=== PATIENT | male | born 1975 | race Caucasian/White ===

== ENCOUNTER 2018-08-27 10:35 | Emergency (ER) | payer OTHER, MEDICARE ==
[2018-08-27 10:48] VITALS: BP 123/73
[2018-08-27] MEDS ORDERED: METHYLPREDNISOLONE INJ 125 MG/2 ML SDV IM ONE (11:03)
[2018-08-27] MEDS ORDERED: KETOROLAC TROMETHAMINE 60 MG/2 ML SDV IM ONE (11:03)
--- NOTE | 2018-08-27 11:08 | ER Document Report ---
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 Patient states that when he has flareups such as this, he usually calls his primary care doctor who ordered him a steroid tapering pack along with giving him a steroid shot which works really well for him. He has been using [id number] meds for his symptoms otherwise. Patient states that he is in pain most days, but has had a recent flareup which is not uncommon for him. He denies any new injury. He denies any drug allergies or IV drug use. He is eating and drinking without any difficulties. He is urinating normally and having normal bowel movements. Denies any headache, fever, changes in vision/speech/mentation/hearing, URI, sore throat, chest pain, palpitations, syncope, cough, shortness of breath, wheeze, dyspnea, abdominal pain, nausea/ vomiting/diarrhea, urinary retention, dysuria, hematuria, loss of control of bowel or bladder, numbness/tingling, saddle anesthesia, muscle paralysis/ weakness, or rash. - ROS Systems Reviewed and Negative: Yes All other systems reviewed and negative Past Medical History - Social History Smoking Status: Current Every Day Smoker Family History: Reviewed & Not Pertinent Vertical Provider Document - CONSTITUTIONAL Agree With Documented VS: Yes Notes: PHYSICAL EXAMINATION: GENERAL: Well-appearing, well-nourished and in no acute distress. HEAD: Atraumatic, normocephalic. Non-tender. EYES: Pupils equal round and reactive to light, extraocular movements intact, sclera anicteric, conjunctiva are normal. ENT: Nares patent and without discharge. oropharynx clear without exudates. No tonsilar hypertrophy or erythema. Moist mucous membranes. NECK: Normal range of motion, supple without lymphadenopathy. No rigidity. No midline tenderness. Spurling negative. + mild tenderness to the c-paraspinal mm. LUNGS: Breath sounds clear to auscultation bilaterally and equal. No wheezes rales or rhonchi. HEART: Regular rate and rhythm without murmurs, rubs, gallops. Musculoskeletal: LE's b/l: FROM to passive/active. Strength 5+/5. No deficits noted. No bony tenderness of extremities. Back: FROM to passive/active. Strength 5+/5. No vertebral point tenderness, stepoffs, or deformities. No other bony tenderness, erythema, swelling, or ecchymosis. SLR negative b/l. no SI jt tenderness. No foot drop Extremities: No cyanosis, clubbing, or edema b/l. Peripheral pulses 2+. Capillary refill less than 2 seconds. NEUROLOGICAL: Normal speech, ataxic gait. Normal sensory, motor exams. Reflexes 2+ b/l. PSYCH: Normal mood, normal affect. SKIN: Warm, Dry, normal turgor, no rashes or lesions noted. Course - Re-evaluation Re-evalutation: 08/27/18 11:06 Patient is an afebrile, well-hydrated, 25-year-old male who presents to the ED with acute on chronic neck pain. Vitals are acceptable. PE is otherwise unremarkable for any focal neurological deficits. Patient was given Toradol and Solu-Medrol. He has no significant tachycardia, tachypnea, or hypoxia. He is nontoxic-appearing and is tolerating p.o. without difficulties. There are no signs of infection. No other red flag symptoms noted. No other labs or imaging warranted at this time based on H&P. Low suspicion for any meningitis, fracture, expanding/ruptured AAA, cauda equina syndrome, epidural mass lesion/ abscess, herniated disc causing severe spinal stenosis, or other systemic infection at this time. Patient is aware that his condition can change from initial presentation and that he needs monitor symptoms closely for any acute changes. I will send him home with a prescription for a steroid taper. Conservative measures otherwise for symptoms. Recheck with your PCM in 3-5 days. Consider consult with orthopedic/physical therapy. Return to the ED with any worsening/concerning symptoms otherwise as reviewed discharge. Patient is in agreement. - Vital Signs Vital signs: Temp Pulse Resp BP Pulse Ox 98.5 F 77 16 123/73 96 08/27/18 10:46 08/27/18 10:46 08/27/18 10:46 08/27/18 10:46 08/27/18 10:46 Discharge - Discharge Clinical Impression: Chronic neck pain Condition: Stable Disposition: HOME, SELF-CARE Additional Instructions: Rest, Ice Tylenol/ibuprofen as needed Light stretches daily Strength exercises as able Moist heat and massage may help F/u with your PCP in 3-5 days for a recheck Consider consult(s) with Orthopedics/physical therapy for ongoing/worsening symptoms Return to the ED with any worsening symptoms and/or development of fever, headache, chest pain, palpitations, syncope, shortness of breath, trouble breathing, abdominal pain, n/v/d, blood in stool/urine, loss of control of bowel /bladder, urinary retention, muscle weakness/paralysis, saddle anesthesia, numbness/tingling, or other worsening symptoms that are concerning to you. Prescriptions: Prednisone 20 mg PO ASDIR #18 tablet Forms: Smoking Cessation Education Referrals: [facility] [Provider Group] - Follow up as needed
== END 2018-08-27 11:35 | disposition home or self-care (01) ==
LOC: ER 10:35
DX: G89.29 Other chronic pain (principal); M54.2 Cervicalgia; F17.200 Nicotine dependence, unspecified, uncomplicated
CPT/HCPCS: 99283; 96372; J1885; J2930

== ENCOUNTER 2018-09-27 16:10 | Emergency (ER) | payer OTHER, MEDICARE ==
[2018-09-27] MEDS ORDERED: PREDNISONE 20 MG TABLET PO ONE (18:59)
[2018-09-27] MEDS ORDERED: HYDROMORPHONE HCL INJ/PF 2 MG/ML AMPULE IM ONE (18:59)
[2018-09-27] MEDS ORDERED: METOCLOPRAMIDE HCL 10 MG TABLET PO ONE (19:01)
[2018-09-27] MEDS ORDERED: DIAZEPAM 5 MG TABLET PO ONE (19:01)
[2018-09-27] MEDS ORDERED: DIPHENHYDRAMINE HCL 25 MG CAPSULE PO ONE (19:02)
--- NOTE | 2018-09-27 19:09 | ER Document Report ---
ED General - General Chief Complaint: Neck Problem Stated Complaint: NECK/ARM PAIN Time Seen by Provider: 09/27/18 18:18 Mode of Arrival: Ambulatory Information source: Patient Notes: Patient is a 43-year-old male with a history of chronic pain, traumatic brain injury status post multiple surgeries for injuries related to combat who presents to the ED complaining of ongoing neck pain and not being able to see his provider until October. 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 Patient states that when he has flareups such as this, he usually calls his primary care doctor who ordered him a steroid tapering pack along with giving him a steroid shot which works really well for him. He has been using [id number] meds for his symptoms otherwise. Patient states that he is in pain most days, but has had a recent flareup which is not uncommon for him. He denies any new injury. He denies any drug allergies or IV drug use. He is eating and drinking without any difficulties. He is urinating normally and having normal bowel movements. Denies any , fever, changes in vision/speech/mentation/hearing, URI, sore throat , chest pain, palpitations, syncope, cough, shortness of breath, wheeze, dyspnea , abdominal pain, nausea/vomiting/diarrhea, urinary retention, dysuria, hematuria, loss of control of bowel or bladder, numbness/tingling, saddle anesthesia, muscle paralysis/weakness, or rash. Patient's neck pain is located in the paraspinal musculature of the cervical spine on the right extending from his occiput to his right shoulder. Patient continuously states that "I am going to lose it, I am at the point of losing it". He is not currently under orthopedic or pain management care. He states that he gets his care from the [place] and has not been able to be seen recently. TRAVEL OUTSIDE OF THE [place] IN LAST 30 DAYS: No - HPI Onset: Other Onset/Duration: Persistent Quality of pain: Throbbing Severity: Moderate Pain Level: 3 Associated symptoms: Body/muscle aches, Headache, Vomiting. denies: Chest pain , Fever, Nausea Exacerbated by: Movement, Walking, Coughing Relieved by: Denies Similar symptoms previously: Yes Recently seen / treated by doctor: Yes - Related Data Allergies/Adverse Reactions: morphine Allergy (Verified 09/27/18 16:15) Past Medical History - General Information source: Patient, [facility] Records - Social History Smoking Status: Current Every Day Smoker Cigarette use (# per day): Yes - 15 Chew tobacco use (# tins/day): No Smoking Education Provided: Yes - Smoking cessation counseling was provided for 4 minutes at the bedside Frequency of alcohol use: None Drug Abuse: None Lives with: Family Family History: Reviewed & Not Pertinent Patient has suicidal ideation: No Patient has homicidal ideation: No Neurological Medical History: Reports: Other - Traumatic brain injury Renal/ Medical History: Denies: Hx Peritoneal Dialysis Musculoskeletal Medical History: Reports Hx Musculoskeletal Deformity, Reports Hx Musculoskeletal Trauma Psychiatric Medical History: Reports: Other - Traumatic brain injury Past Surgical History: Reports: Hx Orthopedic Surgery - neck, hip, shoulder Review of Systems - Review of Systems Notes: REVIEW OF SYSTEMS: CONSTITUTIONAL : Denies fever, chills, or sweats. Denies recent illness. Denies weight loss, recent hospitalizations. EENT: Denies visual changes, eye pain. Denies sore throat, oral lesions, difficulty swallowing. CARDIOVASCULAR: Denies chest pain. Denies palpitations. Denies lower extremity edema. RESPIRATORY: Denies cough. Denies shortness of breath, wheezing. GASTROINTESTINAL: Denies abdominal pain or distention. Denies nausea, vomiting , or diarrhea. Denies blood in vomitus, stools, or per rectum. Denies black, tarry stools. Denies constipation. GENITOURINARY: Denies difficulty urinating, painful urination, frequency, blood in urine, testicular pain or penile discharge. MUSCULOSKELETAL: Denies back pain or stiffness. Denies joint pain or swelling. SKIN: Denies rash, lesions or sores. HEMATOLOGIC : Denies easy bruising or bleeding. LYMPHATIC: Denies swollen glands. NEUROLOGICAL: Denies confusion or altered mental status. Denies loss of consciousness. Denies dizziness or lightheadedness. Denies headache. Denies paralysis. Denies problems difficulty with ambulation, slurred speech. Denies sensory loss, numbness, or tingling. Denies seizures. PSYCHIATRIC: Denies anxiety or stress. Denies depression, suicidal ideation, or Physical Exam - Vital signs Vitals: Temp Pulse Resp BP Pulse Ox 98.2 F 60 18 150/82 H 98 09/27/18 16:29 09/27/18 16:29 09/27/18 16:29 09/27/18 16:29 09/27/18 16:29 Interpretation: Hypertensive - Notes Notes: PHYSICAL EXAMINATION: GENERAL: Well-appearing, well-nourished and in no acute distress. HEAD: Atraumatic, normocephalic. EYES: Pupils equal round and reactive to light, extraocular movements intact, sclera anicteric, conjunctiva are normal. ENT: Nares patent, oropharynx clear without exudates. Moist mucous membranes. NECK: Normal range of motion, supple without lymphadenopathy LUNGS: Breath sounds clear to auscultation bilaterally and equal. No wheezes rales or rhonchi. HEART: Regular rate and rhythm without murmurs ABDOMEN: Soft, nontender, nondistended abdomen. No guarding, no rebound. No masses appreciated. Musculoskeletal: Normal range of motion, no pitting or edema. No cyanosis. No midline tenderness of the cervical, thoracic, lumbar spine. Patient has full range of motion of the right shoulder. He does have some pain along the right trapezius. 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 No neurologic deficits. Left bicep with atrophy when compared to right bicep but still with normal muscle tone. NEUROLOGICAL: Mental status; alert and oriented x3. Cranial nerves II through XII intact. Sensation intact to sharp/dull differentiation in all extremities. Motor; normal tone. No abnormal movements appreciated. No pronator drift. Strength tested and 5/5 in bilateral wrist flexion/extension, elbow flexion/ extension, shoulder abduction, straight leg raise, knee flexion/extension, ankle dorsiflexion/plantar flexion. Patient ambulates with a steady gait. Coordination; no ataxia. Finger to nose and heel to kang testing intact bilaterally. Reflexes; brachial radialis, biceps, and patellar reflexes within normal limits and symmetric bilaterally. Babinski with downgoing toes bilaterally. PSYCH: Agitated SKIN: Warm, Dry, normal turgor, no rashes or lesions noted. Course - Re-evaluation Re-evalutation: 09/27/18 21:53 Cervical Spine MRI 09/27/18 19:09 IMPRESSION: Spinal fusion at C5-C6 Disc osteophyte at C3-C4 resulting in moderate to severe narrowing of the central canal and severe bilateral neural foraminal stenosis Small left lateral disc osteophyte complex at C2-3 with left neural foraminal narrowing Disc bulging at C4-5 with moderate narrowing of the central canal and moderate neural foraminal stenosis. 09/27/18 21:54 Patient is a 43-year-old male with a history of chronic pain, traumatic brain injury status post multiple surgeries for injuries related to combat who presents to the ED complaining of ongoing neck pain and not being able to see his provider until October. 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 Patient states that when he has flareups such as this, he usually calls his primary care doctor who ordered him a steroid tapering pack along with giving him a steroid shot which works really well for him. Vital signs reviewed. Patient is mildly hypertensive. He has no focal neurologic deficits. Patient did receive, Dilaudid, Valium, Reglan, Benadryl. MRI obtained and reviewed with the patient. Patient was provided a copy of his MRI to bring to his spinal surgeon. No emergent findings. 09/27/18 21:54 09/27/18 22:09 Patient reevaluated. He is sitting up, eating, smiling. He states "I am so thankful for this". Patient provided a copy of his MRI. He is requesting a prednisone burst which I will provide for him. Patient was evaluated and treated as appropriate for the patient's presenting symptoms and complaint, with consideration of any critical or life threatening conditions that may be associated with their obtained history and exam as noted above. All results were discussed with patient and provided a copy of his MRI report. Patient provided the opportunity to ask questions, and express concerns. Patient was educated on treatments based on their presumed diagnosis as noted above. At this time we will discharge the patient with return precautions and follow-up recommendations. Verbal discharge instructions given a the bedside. Medication warnings reviewed. Patient is in agreement with this plan and has verbalized understanding of return precautions. After careful consideration I feel that that patient can be safely discharged from the emergency department, they were advised to followup with a primary care physician in 2-3 days. Dictation on this chart was performed using voice recognition software and may result in unintended grammatical, spelling, syntax or errors. 09/28/18 02:40 09/28/18 02:40 - Vital Signs Vital signs: Temp Pulse Resp BP Pulse Ox 98.2 F 63 20 132/83 H 99 09/27/18 16:29 09/27/18 22:18 09/27/18 22:18 09/27/18 22:43 09/27/18 22:18 - Diagnostic Test Radiology reviewed: Image reviewed, Reports reviewed Discharge - Discharge Clinical Impression: Acute on chronic neck pain, Elevated blood pressure reading, Bulging of cervical intervertebral disc Condition: Good Disposition: HOME, SELF-CARE Instructions: Herniated Disc ([facility]), Neck Injury (Cervical Strain) ([facility]) Prescriptions: Prednisone [Deltasone 20 mg Tablet] 3 tab PO DAILY 5 Days #15 tablet Forms: Elevated Blood Pressure Referrals: DEX NATARAJAN DO [Primary Care Provider] - Follow up as needed
--- NOTE | 2018-09-27 21:43 | RADIOLOGY REPORT (SQ) ---
EXAM DESCRIPTION: MR CERVICAL SPINE WITHOUT IV CONTRAST COMPLETED DATE/TME: 09/27/2018 19:09 CLINICAL HISTORY: 43 years Male neck pain COMPARISON: None. TECHNIQUE: Multiplanar and multisequence imaging obtained through the cervical spine without IV contrast. FINDINGS: Straightening of the normal cervical lordosis. Anterior plate and screw fixation with spinal fusion at C5-C6. No evidence of abnormal signal in the cervical cord or the craniocervical junction. C2-3: There is a tiny disc osteophyte on the left resulting in some narrowing of the left aspect of the canal and narrowing of the left neural foramen. C4-5: There is moderate generalized bulging of the disc and posterior osteophytosis which results in moderate to severe narrowing of the central canal and severe bilateral neural foraminal stenosis worse on the left. C4-5: Generalized bulging of the disc with moderate narrowing of the central canal and neural foramina. C5-6: Motion artifact limits evaluation of this region on the axial sequence. There does not appear to be central canal or neural foraminal stenosis. C6-7: There is generalized disc bulging with mild narrowing of the central canal and findings suggesting severe bilateral neural foraminal narrowing. No evidence of abnormal marrow signal to suggest geographic marrow lesion. IMPRESSION: Spinal fusion at C5-C6 Disc osteophyte at C3-C4 resulting in moderate to severe narrowing of the central canal and severe bilateral neural foraminal stenosis Small left lateral disc osteophyte complex at C2-3 with left neural foraminal narrowing Disc bulging at C4-5 with moderate narrowing of the central canal and moderate neural foraminal stenosis.
[2018-09-27] MEDS ORDERED: FENTANYL CITRATE INJ/PF 100 MCG/2 ML AMPUL IV ONE (21:50)
[2018-09-27 22:44] VITALS: BP 132/83
== END 2018-09-27 22:46 | disposition home or self-care (01) ==
LOC: ER 16:10
DX: G89.29 Other chronic pain (principal); M54.2 Cervicalgia; M79.10 Myalgia, unspecified site; R51 Headache; F17.210 Nicotine dependence, cigarettes, uncomplicated; Z87.820 Personal history of traumatic brain injury; Z88.6 Allergy status to analgesic agent
CPT/HCPCS: 99284; 96372; 72141; J3010; J1170; J7512

== ENCOUNTER 2019-01-29 11:52 | Emergency (ER) | payer OTHER, MEDICARE ==
--- NOTE | 2019-01-29 12:30 | ER Document Report ---
ED Medical Screen (RME) - General Chief Complaint: Post Surgical Pain Stated Complaint: POST OP COMPLICATIONS Time Seen by Provider: 01/29/19 12:21 Primary Care Provider: DEX NATARAJAN DO [Primary Care Provider] - Follow up as needed Notes: RAPID MEDICAL EVALUATION DISCLOSURE I have seen this patient as part of a Rapid Medical Evaluation and, if applicable, placed any initially appropriate orders. The patient will be seen and fully evaluated, including a full history and physical exam, by a provider (in Main ED or Fast Track) when a room becomes available. 43-year-old male status post recent cervical spine surgery (he does not know the name of the surgery) at the [facility] January 21, 2019 here with complaints of some right anterior neck swelling and pain that started this morning. He also had associated night sweats. He has not had any drainage. He became concerned because his postsurgical instructions stated that he should go to the emergency department if he had any swelling after the surgery. He denies any other symptoms. EXAM There is some mild soft tissue fullness just to the right of midline Dressings clean dry and intact TRAVEL OUTSIDE OF THE [place] IN LAST 30 DAYS: No - Related Data Allergies/Adverse Reactions: morphine Allergy (Verified 01/29/19 11:53) Past Medical History Renal/ Medical History: Denies: Hx Peritoneal Dialysis Musculoskeltal Medical History: Reports Hx Musculoskeletal Deformity, Reports Hx Musculoskeletal Trauma Past Surgical History: Reports: Hx Orthopedic Surgery - neck, hip, shoulder Physical Exam - Vital signs Vitals: Temp Pulse Resp BP Pulse Ox 98.3 F 57 L 16 132/74 H 99 01/29/19 11:57 01/29/19 11:57 01/29/19 11:57 01/29/19 11:57 01/29/19 11:57 Course - Vital Signs Vital signs: Temp Pulse Resp BP Pulse Ox 98.3 F 57 L 16 132/74 H 99 01/29/19 11:57 01/29/19 11:57 01/29/19 11:57 01/29/19 11:57 01/29/19 11:57 Doctor's Discharge - Discharge Referrals: DEX NATARAJAN, [Primary Care Provider] - Follow up as needed
[2019-01-29 12:54] LABS: ABSOLUTE EOSINOPHILS # (AUTO) 0.1 10^3/uL (0.0-0.6); ABSOLUTE LYMPHOCYTES (AUTO) 1.5 10^3/uL (0.5-4.7); ABSOLUTE MONOCYTES (AUTO) 0.6 10^3/uL (0.1-1.4); ABSOLUTE NEUT (AUTO) 5.5 10^3/uL (1.7-8.2); BASOPHILS % (AUTO) 0.6 % (0-2); EOSINOPHILS % (AUTO) 1.4 % (0-6); HEMATOCRIT 45.1 % (37.9-51.0); HEMOGLOBIN 15.8 g/dL (13.5-17.0); LYMPHOCYTES % (AUTO) 19.2 % (13-45); MEAN CORPUSCULAR HEMOGLOBIN 34.9 pg (27.0-33.4); MEAN CORPUSCULAR HGB CONC 35.1 g/dL (32.0-36.0); MEAN CORPUSCULAR VOLUME 99 fl (80-97); MONOCYTES % (AUTO) 7.7 % (3-13); PLATELET COUNT 256 10^3/uL (150-450); RED BLOOD COUNT 4.54 10^6/uL (4.35-5.55); RED CELL DISTRIBUTION WIDTH 12.9 % (11.5-14.0); SEGMENTED NEUTROPHILS % (AUTO) 71.1 % (42-78); TOTAL CELLS COUNTED % (AUTO) 100 %; WHITE BLOOD COUNT 7.7 10^3/uL (4.0-10.5)
[2019-01-29 13:07] LABS: ALANINE AMINOTRANSFERASE 27 U/L (21-72); ALBUMIN 4.6 g/dL (3.5-5.0); ALKALINE PHOSPHATASE 91 U/L (38-126); ANION GAP 9 (5-19); ASPARTATE AMINO TRANSFERASE 27 U/L (17-59); BILIRUBIN,DIRECT 0.2 mg/dL (0.0-0.4); BILIRUBIN,TOTAL 0.4 mg/dL (0.2-1.3); BLOOD UREA NITROGEN 12 mg/dL (7-20); CALCIUM 9.8 mg/dL (8.4-10.2); CARBON DIOXIDE 30 mmol/L (22-30); CHLORIDE 100 mmol/L (98-107); GLUCOSE 91 mg/dL (75-110); SODIUM 139.1 mmol/L (137-145)
--- NOTE | 2019-01-29 13:36 | ER Document Report ---
ED General - General Chief Complaint: Post Surgical Pain Stated Complaint: POST OP COMPLICATIONS Time Seen by Provider: 01/29/19 12:21 Primary Care Provider: DEX NATARAJAN DO [NO LOCAL MD] - Follow up as needed Information source: Patient Notes: 43-year-old male who presents today stating he feels a little bit of fullness to the right anterior neck. Patient had a fusion of C3 through C6 and then C6 through C7 from a right anterior approach January 21 at the [facility]. she denies any fevers, shortness of breath, swelling of the neck, or difficulty breathing or swallowing. He denies any aggravating or relieving factors. TRAVEL OUTSIDE OF THE [place] IN LAST 30 DAYS: No - Related Data Allergies/Adverse Reactions: morphine Allergy (Verified 01/29/19 11:53) Past Medical History - Social History Smoking Status: Current Every Day Smoker Family History: Reviewed & Not Pertinent Patient has suicidal ideation: No Patient has homicidal ideation: No Renal/ Medical History: Denies: Hx Peritoneal Dialysis Musculoskeletal Medical History: Reports Hx Musculoskeletal Deformity, Reports Hx Musculoskeletal Trauma Past Surgical History: Reports: Hx Orthopedic Surgery - neck, hip, shoulder Review of Systems - Review of Systems Constitutional: denies: Chills, Fever Cardiovascular: denies: Chest pain, Palpitations Respiratory: denies: Cough, Short of breath Neurological/Psychological: denies: Confusion -: Yes All other systems reviewed and negative Physical Exam - Vital signs Vitals: Temp Pulse Resp BP Pulse Ox 98.3 F 57 L 16 132/74 H 99 01/29/19 11:57 01/29/19 11:57 01/29/19 11:57 01/29/19 11:57 01/29/19 11:57 Notes: Reviewed vital signs and nursing note as charted by RN. CONSTITUTIONAL: Alert and oriented and responds appropriately to questions. Well-appearing; well-nourished HEAD: Normocephalic; atraumatic EYES: PERRL; full extraocular range of motion ENT: Normal nose; no rhinorrhea; moist mucous membranes; no posterior pharyngeal or periorbital lesions present NECK: we removed the cervical collar which the patient states he is allowed to do maintaining midline stabilization. Patient has some mild swelling in a linear pattern precisely along the suture line. There is no surrounding erythema, no induration, no neck swelling or fullness. There is no discharge with light palpation of the suture site itself CARD: Regular rate and rhythm; no murmurs; symmetric distal pulses RESP: Normal chest excursion without splinting or tachypnea; breath sounds clear and equal bilaterally; no wheezing or stridor present SKIN: See above NEURO: CN 2-12 intact; 5/5 bilateral upper and lower extremity strength with sensation intact to light touch PSYCH: The patient's mood and manner are appropriate. Grooming and personal hygiene are appropriate. Course - Re-evaluation Re-evalutation: 01/29/19 13:40 Given the above history and physical examination, showing only some linear induration along the suture site itself, with no discharge, swelling, erythema, induration, pain, fever, vomiting, difficulty breathing or swallowing, with a normal white blood cell count, I do not believe any imaging or further workup is necessary at this time. Patient will be discharged home with strict return precautions. He understands the [facility]. - Vital Signs Vital signs: Temp Pulse Resp BP Pulse Ox 98.3 F 57 L 16 132/74 H 99 01/29/19 11:57 01/29/19 11:57 01/29/19 11:57 01/29/19 11:57 01/29/19 11:57 - Laboratory Result Diagrams: 01/29/19 12:35 01/29/19 12:35 Laboratory results interpreted by me: 01/29/19 12:35 MCV 99 H MCH 34.9 H Discharge - Discharge Clinical Impression: Neck fullness Condition: Good Disposition: HOME, SELF-CARE Additional Instructions: Come back immediately with any increased swelling, any redness, any fever, any vomiting, any difficulty breathing or swallowing, or any other acute problems. Please make sure that you [facility] as [facility] have discussed. Referrals: DEX NATARAJAN, [NO LOCAL MD] - Follow up as needed
[2019-01-29 14:18] VITALS: BP 116/71
== END 2019-01-29 14:20 | disposition home or self-care (01) ==
LOC: ER 11:52
DX: M53.82 Other specified dorsopathies, cervical region (principal); F17.200 Nicotine dependence, unspecified, uncomplicated; Z98.1 Arthrodesis status; Z88.5 Allergy status to narcotic agent
CPT/HCPCS: 36415; 80053; 85025; 87040; 99283